=== PATIENT | female | born 2000 | race American Indian/Alaskan Native ===

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

== ENCOUNTER 2020-12-16 14:16 | Emergency (ER) | payer OTHER ==
[2020-12-16 14:29] VITALS: BP 138/73
[2020-12-16] MEDS ORDERED: BUTALB/ACETAMINOPHEN/CAFFEINE TAB PO ONE (16:57)
[2020-12-16] MEDS ORDERED: DEXAMETHASONE 4 MG TAB PO ONE (16:57)
--- NOTE | 2020-12-16 16:57 | Emergency Department Report ---
ED Headache HPI - General Chief Complaint: Headache Stated Complaint: MIGRAINES Time Seen by Provider: 12/16/20 16:13 - History of Present Illness Initial Comments: 20 year old female with who reports no significant past medical history presents to ED with complaints of headache. Patient reports that her LUNA started about 2 weeks ago. She states its diffuse but mainly temporal bilaterally. She states that it does improve when she takes Excedrin, but when the medicine wears off it comes right back. She states that she went to an urgent care 2 weeks ago and they told that she likely has tension migraines and she was given a COVID-19 test which was negative. She states that she was not prescribed any medication for the headaches. She states that she has been having stuffiness in both ears, but no other URI symptoms. She denies any recent head injuries. She denies any fever or chills. She denies any neck pain,. She denies any prior history of headaches. She denies any family history of IC aneurysms. Her last menstrual cycle was 2 weeks ago and normal. She denies any alcohol abuse or tobacco use. Timing/Duration: other (2 weeks ) Quality: constant, throbbing Allergies/Adverse Reactions: Allergies No Known Allergies Allergy (Verified 12/16/20 14:26) Home Medications: Ambulatory Orders Ondansetron [Zofran Odt] 4 mg PO Q8HR PRN #10 tab.rapdis 09/24/18 Amoxicillin [Trimox CAP] 500 mg PO Q8H #30 capsule 12/16/20 Butalb/Acetamin/Caff 50-325-40 [Fioricet 50-325-40] 1 each PO Q4H PRN #12 tablet 12/16/20 methylPREDNISolone [Medrol 4MG DOSEPAK (21 tabs)] 4 mg PO DAILY #1 tab.ds.pk 12/16/20 ED Review of Systems ROS: Stated complaint: MIGRAINES Other details as noted in HPI Comment: All other systems reviewed and negative Constitutional: denies: chills, fever Eyes: other ("Stuffiness in ears") ENT: denies: ear pain, throat pain Respiratory: denies: cough, shortness of breath, wheezing Cardiovascular: denies: chest pain, palpitations Gastrointestinal: denies: abdominal pain, nausea, vomiting, diarrhea, constipation, hematemesis, hematochezia Genitourinary: denies: urgency, dysuria, discharge Neurological: headache. denies: numbness, paresthesias, confusion, abnormal gait, vertigo Psychiatric: denies: anxiety, depression, auditory hallucinations, visual hallucinations, homicidal thoughts, suicidal thoughts Hematological/Lymphatic: denies: easy bleeding, easy bruising, swollen glands ED Past Medical Hx - Surgical History Hx Appendectomy: Yes - Social History Smoking Status: Never Smoker Substance Use Type: None - Medications Home Medications: Home Medications Medication Instructions Recorded Confirmed Last Taken Type Ondansetron [Zofran Odt] 4 mg PO Q8HR PRN #10 tab.rapdis 09/24/18 Unknown Rx Amoxicillin [Trimox CAP] 500 mg PO Q8H #30 capsule 12/16/20 Unknown Rx Butalb/Acetamin/Caff 50-325-40 1 each PO Q4H PRN #12 tablet 12/16/20 Unknown Rx [Fioricet 50-325-40] methylPREDNISolone [Medrol 4MG 4 mg PO DAILY #1 tab.ds.pk 12/16/20 Unknown Rx DOSEPAK (21 tabs)] ED Physical Exam - General Limitations: No Limitations General appearance: alert, in no apparent distress - Head Head exam: Present: atraumatic, normocephalic, normal inspection - Eye Eye exam: Present: normal appearance, PERRL, EOMI Pupils: Present: normal accommodation - ENT ENT exam: Present: other (Bilateral frontal sinus tenderness) - Expanded ENT Exam Expanded TM/Canal exam: Effusion: Right TM, Left TM Mouth exam: Present: normal external inspection Teeth exam: Present: normal inspection Throat exam: Positive: normal inspection - Neck Neck exam: Present: normal inspection, full ROM. Absent: meningismus - Respiratory Respiratory exam: Present: normal lung sounds bilaterally. Absent: respiratory distress, wheezes, rales, rhonchi - Cardiovascular Cardiovascular Exam: Present: regular rate, normal rhythm, normal heart sounds - GI/Abdominal GI/Abdominal exam: Present: soft. Absent: distended, tenderness, guarding, rebound - Neurological Exam Neurological exam: Present: alert, oriented X3, CN II-XII intact, normal gait - Psychiatric Psychiatric exam: Present: normal affect, normal mood - Skin Skin exam: Present: intact ED Course Vital Signs 12/16/20 12/16/20 14:26 17:17 Temperature 98.2 F Pulse Rate 86 Respiratory 16 17 Rate Blood Pressure 138/73 [Left] O2 Sat by Pulse 100 Oximetry ED Medical Decision Making - Medical Decision Making The patient presented to the emergency department with a headache. The patient is resting comfortably and is alert, talkative, interactive and in no distress. The patient appears well and there is no signs of dehydration. The patient is neurologically intact, has a normal mental status, and is ambulatory in the ER. The history, exam, diagnostic testing and the patient's current condition does not suggest meningitis, stroke, sepsis, subarachnoid hemorrhage, intracranial bleeding, encephalitis, or other significant pathology to warrant further testing, continued ED treatment, admission, neurological consultation or other specialist evaluation at this point. Patient had a could be related to sinusitis as she does have frontal sinus tenderness and bilateral effusion behind both TMs. She will be treated for possible sinus infection, but informed her that herpetic patient that she will need to follow-up with neurologist and she will be given referral to neurologist. The vital signs have been stable. Patient expressed understanding of instructions and agree with plan. The patient's condition is stable and appropriate for discharge. The patient will pursue further outpatient evaluation with the primary care physician or other designated or consulting physician as indicated in the discharge instruction. Critical care attestation.: If time is entered above; I have spent that time in minutes in the direct care of this critically ill patient, excluding procedure time. ED Disposition Clinical Impression: Headache, Acute sinusitis Disposition: HOME / SELF CARE / HOMELESS Is pt being admited?: No Does the pt Need Aspirin: No Condition: Stable Instructions: General Headache Without Cause, Sinusitis, Adult, [id number], Sinus Headache Additional Instructions: I recommend that you take the amoxicillin, the Medrol Dosepak and the Fioricet as prescribed. The amoxicillin will help with any possible sinus infection as well as a Medrol Dosepak and the Fioricet will help with your headache. I do recommend following up with the neurologist listed on your discharge instructions if you headache despite taking the medication but if your symptoms worsens return to the ER. Prescriptions: Butalb/Acetamin/Caff 50-325-40 [Fioricet 50-325-40] 1 each PO Q4H PRN #12 tablet PRN Reason: Headache methylPREDNISolone [Medrol 4MG DOSEPAK (21 tabs)] 4 mg PO DAILY #1 tab.ds.pk Amoxicillin [Trimox CAP] 500 mg PO Q8H #30 capsule Referrals: [facility] [Provider Group] - 3-5 Days [facility] [Provider Group] - 3-5 Days Time of Disposition: 17:04
== END 2020-12-16 17:27 | disposition home or self-care (01) ==
LOC: ED 14:16
DX: J01.90 Acute sinusitis, unspecified (principal); Z90.49 Acquired absence of other specified parts of digestive tract; Z79.899 Other long term (current) drug therapy
CPT/HCPCS: 99282; J8540

== ENCOUNTER 2021-08-17 13:03 | Emergency (ER) | payer SELFPAY ==
--- NOTE | 2021-08-17 13:59 | XRay Report ---
XR chest routine 2V INDICATION / CLINICAL INFORMATION: COUGH. COMPARISON: None available. FINDINGS: SUPPORT DEVICES: None. HEART /PULMONARY VASCULATURE: No significant abnormality. LUNGS / PLEURA: No significant pulmonary or pleural abnormality. No pneumothorax. ADDITIONAL FINDINGS: S-shaped scoliotic curvature of the thoracolumbar spine with right convex curvat ure centered at the midthoracic spine and left convex curvature centered at the upper lumbar spine. IMPRESSION: 1. No acute findings. 2. S-shaped scoliotic curvature of the thoracolumbar spine. Signer Name: Trav Pepe MD Signed: 08/17/2021 1:55 PM Workstation Name: [id number]
[2021-08-17 17:19] VITALS: BP 113/67
--- NOTE | 2021-08-17 17:28 | Emergency Department Report ---
ED General Adult HPI - General Chief complaint: Upper Respiratory Infection Stated complaint: CHEST PAIN/QUINN Source: patient Mode of arrival: Ambulatory Limitations: No Limitations - History of Present Illness Initial comments: 21-year-old female presents to the ED complaining of right upper chest wall pain x1 day. She states that she has a history of anxiety. Denies any chest wall pain at present time. She states that pain is only hurts when she touches it. Patient denies any abdominal pain ,nausea /vomiting fever or chills. Patient is alert and oriented x3. No acute distress. No ill appearance noted. - Related Data Previous Rx's Medication Instructions Recorded Last Taken Type Ondansetron [Zofran Odt] 4 mg PO Q8HR PRN #10 tab.rapdis 09/24/18 Unknown Rx Amoxicillin [Trimox CAP] 500 mg PO Q8H #30 capsule 12/16/20 Unknown Rx Butalb/Acetamin/Caff 50-325-40 1 each PO Q4H PRN #12 tablet 12/16/20 Unknown Rx [Fioricet 50-325-40] methylPREDNISolone [Medrol 4MG 4 mg PO DAILY #1 tab.ds.pk 12/16/20 Unknown Rx DOSEPAK (21 tabs)] Ibuprofen [Motrin] 800 mg PO Q8HR PRN 15 Days #30 08/17/21 Unknown Rx tablet Allergies Allergy/AdvReac Type Severity Reaction Status Date / Time No Known Allergies Allergy Verified 08/17/21 13:36 ED Review of Systems ROS: Stated complaint: CHEST PAIN/QUINN Other details as noted in HPI Constitutional: denies: chills, fever Eyes: denies: eye pain, eye discharge, vision change ENT: denies: ear pain, throat pain Respiratory: denies: cough, shortness of breath, wheezing Cardiovascular: denies: chest pain, palpitations Endocrine: no symptoms reported Gastrointestinal: denies: abdominal pain, nausea, diarrhea Genitourinary: denies: urgency, dysuria, discharge Musculoskeletal: denies: back pain, joint swelling, arthralgia Skin: denies: rash, lesions Neurological: denies: headache, weakness, paresthesias Psychiatric: denies: anxiety, depression Hematological/Lymphatic: denies: easy bleeding, easy bruising ED Past Medical Hx - Past Medical History Previous Medical History?: No - Surgical History Hx Appendectomy: Yes - Social History Smoking Status: Never Smoker Substance Use Type: None - Medications Home Medications: Home Medications Medication Instructions Recorded Confirmed Last Taken Type Ondansetron [Zofran Odt] 4 mg PO Q8HR PRN #10 tab.rapdis 09/24/18 Unknown Rx Amoxicillin [Trimox CAP] 500 mg PO Q8H #30 capsule 12/16/20 Unknown Rx Butalb/Acetamin/Caff 50-325-40 1 each PO Q4H PRN #12 tablet 12/16/20 Unknown Rx [Fioricet 50-325-40] methylPREDNISolone [Medrol 4MG 4 mg PO DAILY #1 tab.ds.pk 12/16/20 Unknown Rx DOSEPAK (21 tabs)] Ibuprofen [Motrin] 800 mg PO Q8HR PRN 15 Days #30 08/17/21 Unknown Rx tablet ED Physical Exam - General Limitations: No Limitations General appearance: alert, in no apparent distress - Head Head exam: Present: atraumatic, normocephalic - Eye Eye exam: Present: normal appearance - ENT ENT exam: Present: mucous membranes moist - Neck Neck exam: Present: normal inspection - Respiratory Respiratory exam: Present: normal lung sounds bilaterally. Absent: respiratory distress - Cardiovascular Cardiovascular Exam: Present: regular rate, normal rhythm. Absent: systolic murmur, diastolic murmur, rubs, gallop - GI/Abdominal GI/Abdominal exam: Present: soft, normal bowel sounds - Extremities Exam Extremities exam: Present: normal inspection - Back Exam Back exam: Present: normal inspection - Neurological Exam Neurological exam: Present: alert, oriented X3 - Psychiatric Psychiatric exam: Present: normal affect, normal mood - Skin Skin exam: Present: warm, dry, intact, normal color. Absent: rash ED Course Vital Signs 08/17/21 17:17 Temperature 98.2 F Pulse Rate 59 L Respiratory 16 Rate Blood Pressure 113/67 [Right] O2 Sat by Pulse 100 Oximetry ED Medical Decision Making - Medical Decision Making 21-year-old female presents to the ED complaining of right upper chest wall pain x1 day. She states that she has a history of anxiety. Denies any chest wall pain at present time. She states that pain is only hurts when she touches it. Patient denies any abdominal pain ,nausea /vomiting fever or chills. Patient is alert and oriented x3. No acute distress. No ill appearance noted. Physical examination is unremarkable. 2 view x-ray showed no abnormality. Rechecked the patient is resting quietly , comfortable and feeling better. I discussed the results of diagnostic study, my clinical impression and the plan for further treatment with the patient. Patient agrees with plan and discharge at this present time. All question addressed. I have given the patient instruction regarding a diagnosis ,expectation ,follow- up and return precaution. I explained to the patient that emergent condition may arise and to return to the ED for new worsen and any new persisting condition. I have explained the importance of following up with the primary care physician or referral physician listed below has instructed. The patient verbalized understanding of discharge instruction. Critical care attestation.: If time is entered above; I have spent that time in minutes in the direct care of this critically ill patient, excluding procedure time. ED Disposition Clinical Impression: Chest wall tenderness Disposition: 01 HOME / SELF CARE / HOMELESS Is pt being admited?: No Does the pt Need Aspirin: No Condition: Stable Instructions: Chest Wall Pain, [id number] Additional Instructions: Return to ED for any worsening symptom Take medication as prescribed Prescriptions: Ibuprofen [Motrin] 800 mg PO Q8HR PRN 15 Days #30 tablet PRN Reason: Pain, Mild (1-3) Referrals: [facility] [Provider Group] - 3-5 Days Forms: Work/School Release Form(ED) Time of Disposition: 18:07
== END 2021-08-17 18:52 | disposition home or self-care (01) ==
LOC: ED 13:03
DX: R07.89 Other chest pain (principal)
CPT/HCPCS: 71046; 99283